=== PATIENT | female | born 1970 | race American Indian/Alaskan Native ===

== ENCOUNTER 2019-02-12 07:04 | Day surgery (SDC) | payer MEDICARE ==
--- NOTE | 2019-02-12 09:45 | Anesthesia Consultation ---
Anesthesia Consult and Med Hx Date of service: 02/12/19 - Airway Anesthetic Teeth Evaluation: Good, Crowns ROM Head & Neck: Adequate Mental/Hyoid Distance: Adequate Mallampati Class: Class I Intubation Access Assessment: Good - Pre-Operative Health Status ASA Pre-Surgery Classification: ASA3 Proposed Anesthetic Plan: MAC - Pulmonary Hx Sleep Apnea: Yes - Cardiovascular System Hx Hypertension: Yes (NST 2 years ago OK per pt; ECHO this year) - Central Nervous System Hx Neuromuscular Disorder: Yes (RHEUMATOID ARTHRITIS) - Gastrointestinal Hx Gastroesophageal Reflux Disease: Yes - Endocrine Hx Non-Insulin Dependent Diabetes: Yes
--- NOTE | 2019-02-12 09:47 | Anesthesia Day of Surgery ---
Anesthesia Day of Surgery - Day of Surgery Patient Examined: Yes Patient H&P Reviewed: Yes Patient is NPO: Yes Beta Blockers: Yes
[2019-02-12] MEDS ORDERED: VERSED ONE (10:18)
[2019-02-12] MEDS ORDERED: DIPRIVAN 10 MG/ML IV ONE (10:19)
[2019-02-12] MEDS ORDERED: XYLOCAINE 2% INFILTRATI ONE (10:32)
[2019-02-12] MEDS ORDERED: NACL 0.9% 1000 ML 1,000 ML IV SCH (11:00)
--- NOTE | 2019-02-12 13:37 | Operative Report ---
SURGEON: Eric Bland M.D. COMMISSION ASSOCIATE: Neymar Dee M.D. PREOPERATIVE DIAGNOSIS: Morbid obesity. POSTOPERATIVE DIAGNOSIS: Normal EGD. PROCEDURE: Esophagogastroduodenoscopy. ANESTHESIA: MAC. COMPLICATIONS: None. BLEEDING: None. SPECIMENS: None. INDICATIONS: The patient is a 48-year-old female with a history of morbid obesity. She is here for a preoperative EGD in preparation for weight loss surgery. Informed consent was obtained. DESCRIPTION OF PROCEDURE: The patient was brought to the GI suite where she was placed in the left lateral decubitus position and underwent MAC anesthesia. A bite block was placed and a timeout was called. A standard adult gastroscope was inserted into the oropharynx, down the esophagus, into the stomach and the first portion of the duodenum. She was noted to have a patulous pylorus with direct entry into the duodenum, but otherwise no other abnormalities. On retroflexion view, she was noted to have no hiatal hernia with no other abnormalities. The air was suctioned out. The gastroscope was removed. The patient tolerated the procedure with no immediate complications and was transferred to the PACU in stable condition. JOB# [id number] JOYCE/MARNIE
[2019-02-12 14:26] VITALS: BP 120/74
== END 2019-02-12 07:05 | disposition home or self-care (01) ==
LOC: GIO 07:04
PROVIDERS: ATTEND Specialist
DX: K30 Functional dyspepsia (principal); E66.01 Morbid (severe) obesity due to excess calories; G47.30 Sleep apnea, unspecified; I10 Essential (primary) hypertension; K21.9 Gastro-esophageal reflux disease without esophagitis; E11.9 Type 2 diabetes mellitus without complications; E78.00 Pure hypercholesterolemia, unspecified; M06.9 Rheumatoid arthritis, unspecified; Z90.710 Acquired absence of both cervix and uterus; Z87.891 Personal history of nicotine dependence; Z98.891 History of uterine scar from previous surgery; Z68.38 Body mass index [BMI] 38.0-38.9, adult; Z79.84 Long term (current) use of oral hypoglycemic drugs; Z79.899 Other long term (current) drug therapy; Z88.5 Allergy status to narcotic agent; Z88.8 Allergy status to other drugs, medicaments and biological substances
CPT/HCPCS: 43235; 82962; J2250; J2704; J7030